=== PATIENT | female | born 1995 | race Two or more races ===

== ENCOUNTER 2024-12-16 15:43 | Emergency (ER) | payer MEDICAID, SELFPAY ==
[2024-12-16 15:45] VITALS: BMI 30.7
[2024-12-16 16:19] VITALS: BP 122/83; PULSE 112; RESP 18; TEMP 37; O2SAT 96
--- NOTE | 2024-12-16 16:28 | EDNOTE_ITS ---
<Statement entered by Rosalind Lr MD - 12/16/24 17:10> As co-signing physician, I was present and available for consult prn. I concur with the plan and care as documented by the midlevel provider. ED Skin Abcess FB-RME/HPI General Chief complaint: Skin/Abscess/Foreign Body Stated complaint: BIT BY SPIDER TO LEFT BUTTOCK Time Seen by Provider: 12/16/24 16:28 Source: patient Arrival date/time: 12/16/24 15:43 29-year-old female with no known medical history presents to the emergency room with a chief complaint of an insect bite to the left buttocks x 2 days Mode of arrival: ambulatory Limitations: no limitations Related Data Previous Rx's ?Medication ?Instructions ?Recorded sulfamethoxazole 800 1 tab PO BID #14 tabs mg-trimethoprim 160 mg tablet (Bactrim DS) Allergies Allergy/AdvReac Type Severity Reaction Status Date / Time No Known Allergies Allergy Verified 12/16/24 15:45 Review of Systems Review of Systems Systems Reviewed: All systems reviewed, normal except as documented Constitutional Constitutional: Reports system reviewed and no additional complaints, except as documented, Denies fatigue, Denies fever(s), Denies headache(s) and Denies weakness Eyes Eyes: Reports system reviewed and no additional complaints, except as documented, Denies blurry vision and Denies change in vision ENT Ears, Nose, Mouth, and Throat: Reports system reviewed and no additional complaints, except as documented, Denies otalgia, Denies headache(s), Denies nasal congestion, Denies throat swelling and Denies vertigo Cardiovascular Cardiovascular: Reports system reviewed and no additional complaints, except as documented, Denies chest pain, Denies dyspnea and Denies dyspnea on exertion Respiratory Respiratory: Reports system reviewed and no additional complaints, except as documented, Denies chest congestion, Denies cough, Denies dyspnea, Denies dyspnea on exertion and Denies wheezing Gastrointestinal Gastrointestinal: Reports system reviewed and no additional complaints, except as documented, Denies abdominal pain, Denies cramping, Denies nausea and Denies vomiting Genitourinary Genitourinary: Reports system reviewed and no additional complaints, except as documented Musculoskeletal Musculoskeletal: Reports system reviewed and no additional complaints, except as documented and Denies back pain Integumentary/Breasts Skin/Breast: Reports system reviewed and no additional complaints, except as documented and Reports wounds Neurologic Neurologic: Reports system reviewed and no additional complaints, except as documented, Denies confusion, Denies headache(s), Denies lack of coordination, Denies vertigo and Denies weakness Psychiatric Psychiatric: Reports system reviewed and no additional complaints, except as documented, Denies anxiety, Denies confusion, Denies depression, Denies paranoia, Denies suicidal ideation and Denies tactile hallucinations Endocrine Endocrine: Reports system reviewed and no additional complaints, except as documented and Denies fatigue Hematologic/Lymphatic Hematologic/Lymphatic: Reports system reviewed and no additional complaints, except as documented and Denies lymphadenopathy Allergic/Immunologic Allergic/Immunologic: Reports system reviewed and no additional complaints, except as documented, Denies throat swelling, Denies urticaria and Denies wheezing ED Exam General Limitations: Present no limitations General appearance: Present alert and in no apparent distress Head Head exam: Present atraumatic Eye Eye exam: Present normal appearance, PERRL and EOMI ENT ENT exam: Present normal exam, normal oropharynx and mucous membranes moist Neck Neck exam: Present normal inspection, full ROM and trachea midline Chest Chest inspection: Present normal inspection and symmetric chest wall rise Respiratory Respiratory exam: Present normal lung sounds bilaterally Cardiovascular Cardiovascular exam: Present regular rate, normal rhythm and normal heart sounds Abdominal Exam Abdominal exam: Present soft and normal bowel sounds Extremities Exam Extremities exam: Present normal inspection and full ROM Back Exam Back exam: Present normal inspection and full ROM Neurological Exam Neurological exam: Present alert, oriented X3 and CN II-XII intact Psychiatric Psychiatric exam: Present normal affect and normal mood Skin Skin exam: Present warm, dry, intact and normal color Expanded Skin Exam Type of lesion: Present abscess Distribution: Present other (Left buttocks) Description: Present erythematous, swelling and discharge Body image: 2 1. 1 cm abscess to the left buttocks. The site is erythemic, swollen, and there is drainage. Patient states her sister popped and pus drained from it earlier this morning. At this time the abscess is not ready to be drained Course Quality Measures none Vital Signs Vital signs: Vital Signs Temperature 98.6 F 12/16/24 16:19 Pulse Rate 112 H 12/16/24 16:19 Respiratory Rate 18 12/16/24 16:19 Blood Pressure 122/83 12/16/24 16:19 Pulse Oximetry (%) 96 12/16/24 16:19 Oxygen Delivery Method Room Air 07/28/25 16:19 Skin / Abscess / Foreign Body MDM Narrative MDM Narrative:: 29-year-old female with no known medical history presents to the emergency room with a chief complaint of an insect bite to the left buttocks x 2 days Patient is hemodynamically stable and in no apparent distress Physical examination shows a 1 cm abscess to the left buttocks area. The site is erythemic warm to the touch and swollen. There is drainage on it has the patient states that her sister was able to squeeze it and get some pus out of it this morning. At this time the site does not appear ready to be I&D. I gave the patient antibiotics and gave her strict return precautions to return if her signs and symptoms are not improving Patient was discharged and educated to follow-up with primary care provider in the next 24 to 48 hours and return to the emergency room for any evidence of worsening signs or symptoms Patient data External records reviewed:: [facility] previous records Clinical information provided by:: patient Social determinants that could affect healthcare access:: none Patient has the following chronic illnesses:: No chronic illness How is presenting disease/condition affected by chronic disease/condition?: no chronic disease Evaluation data The following diagnostics were reviewed and interpreted by me:: lab results and radiology exam(s) Lab and/or radiology exams considered but not ordered:: Labs and radiology exams considered and ordered Interpretation Summary: N/A Medications / Prescriptions Medications or Prescriptions considered but not ordered:: Medication given Medication administrations:: Medication given Consultations Consultation(s) initiated? (list below): No Diagnosis Skin/Abscess Differential Diagnosis: abscess of skin or subcutaneous tissue, cellulitis, insect bites and contact dermatitis Most likely diagnosis given after review of the tests above:: Abscess of skin and subcutaneous tissue Admission Indicated Admission indicated?: not indicated Admission Request Was there a request for admission?: No Disposition Plan Disposition Plan: Discharge Discharge Attestation Discharge Attestation: The patient and all family members were given an opportunity to ask questions and understood the discharge instructions. Discharge instructions specifically effects, indications for sooner follow up or return to the emergency department, and the expected course of current diagnosis. Patient condition: Stable Discharge Plan Plan Patient Disposition: HOME (Self Care) Discharge Disposition comment: Stable Prescriptions/Referrals Prescriptions/Med Rec: New sulfamethoxazole-trimethoprim [Bactrim DS] 800-160 mg tablet 1 tab PO BID Qty: 14 0RF Problem List Clinical Impression: Abscess of skin or subcutaneous tissue, Insect bites Patient/Caregiver Discharge Instructions Education Materials: ED Abscess Antibiotic ... Additional Instructions: Please follow-up with your primary care provider in the next 24 to 48 hours You have an abscess to the left buttocks. At this time it is not ready for an incision and drainage. Antibiotics are sent to your pharmacy please pick them up and take them as indicated If you do not notice any improvement in your wound please return to the emergency room immediately For any evidence of worsening signs or symptoms return to the emergency room Print Language: Hebrew Stand Alone Forms: [facility] Award Info., Patient Portal Info Letter PA/VALET MANAGER Supervising Physician PA/VALET MANAGER Supervising Physician: Dr. LR
[2024-12-16] MEDS: CLINDAMYCIN PHOS INJ 150 MG/ML VIAL 6 ML 600 MG IM (17:26)
== END 2024-12-16 17:34 | disposition home or self-care (01) ==
LOC: SERX 16:30
PROVIDERS: Emergency Provider Emergency Medicine
DX: S30.860A Insect bite (nonvenomous) of lower back and pelvis, initial encounter (principal); L02.31 Cutaneous abscess of buttock; W57.XXXA Bitten or stung by nonvenomous insect and other nonvenomous arthropods, initial encounter
CPT/HCPCS: 99283; J0736